=== PATIENT | male | born 2000 | race Caucasian/White ===

== ENCOUNTER 2023-08-01 13:11 | Emergency (ER) | payer OTHER ==
[~2023-08-01] VITALS: Ht 182.9 cm; Wt 108.9 kg
[2023-08-01] MEDS ORDERED: PROZAC10 MG PO (15:21)
[2023-08-01] MEDS ORDERED: REMERON30 MG PO (15:22)
[2023-08-01] MEDS ORDERED: AMOXICILLIN500 MG PO (18:35)
[2023-08-01 18:44] VITALS: BP 124/70
== END 2023-08-01 18:45 | disposition home or self-care (01) ==
LOC: ED 13:11
DX: S02.831A Fracture of medial orbital wall, right side, initial encounter for closed fracture (principal); S02.2XXA Fracture of nasal bones, initial encounter for closed fracture; S02.40CA Maxillary fracture, right side, initial encounter for closed fracture; S02.641A Fracture of ramus of right mandible, initial encounter for closed fracture; Y04.2XXA Assault by strike against or bumped into by another person, initial encounter; Z91.018 Allergy to other foods; Z79.899 Other long term (current) drug therapy
CPT/HCPCS: 70450; 70486; 99284-25; A9270